=== PATIENT | female | born 1985 | race African-American/Black ===

== ENCOUNTER 2017-02-20 06:05 | Observation (INO) | payer SELFPAY ==
--- NOTE | 2017-02-19 14:57 | MH ---
cc: ASHLEY REYES DATE OF ADMISSION: [facility] Visit Search.Admit Date DATE OF : 1985 ADMITTING DIAGNOSIS Retained placenta four weeks after vaginal delivery. The scheduled procedure will be D&C to remove retained placenta. HISTORY OF PRESENT CONDITION The patient is a very pleasant 31-year-old [place] female, 1, para 0-1-0-1, 4 weeks post unexpected vaginal delivery at [facility] by Dr. Kiser. [place] when the [place] occurred. She went home and returned to the emergency room at [facility] on February 13 for persistent and increasing vaginal bleeding with clots and cramps. She had lab work done but does not have the results. She was told at that time that her ultrasound suggested she would need a D&C and that she needed to follow-up with her delivering [employer]. She was told she could not be seen by the delivering OB-PRODUCE WRAPPER until she obtained Medicaid. She has been working toward that but continuing to bleed. She was therefore sent to the [facility] clinic today which is actually a place for women with opioid dependence, but was seen regardless. At this time she is afebrile, normotensive, not orthostatic, but still bleeding with a partially opened os. She was sent from the clinic to my office for repeat ultrasound which confirmed the presence of two large foci of what was believed to be placental tissue, one at the lower uterine segment and one at the fundus. PHYSICAL EXAMINATION VITAL SIGNS: Her blood pressure is stable at 110/70. Her weight is 174. LUNGS: Clear to auscultation. HEART: Rate and rhythm are regular. ABDOMEN: Benign. IMPRESSION Impression at this time is retained placental fragments. PLAN The plan is for D&C. Because Elizabeth had eaten within the last 30 minutes, actually between the health department and my office, and because she is clinically stable, the decision was made to perform the D&C Wednesday morning. She is on hold for any time in the morning when she can be fit in. She will need to sign consents and have both a CBC and an Rh titer done if we cannot obtain the Rh status from [facility]. She can be reached at [phone]. She was counseled extensively on returning to the emergency room at [facility] between now and tomorrow should the bleeding become even heavier, should she develop fever, should she become weak, tachycardic or feel like she was going to faint. She voiced understanding and will not eat or drink after midnight tonight. Will be expecting a phone call from the [facility] OR to determine the time tomorrow morning that she will be fit in. Ashley Reyes MD PPC/BT /2:13 PM /2:19 PM Visit #: [facility] Visit Search.Visit Number
[~2017-02-20] VITALS: Ht 177.8 cm; Wt 79.0 kg
[2017-02-20] MEDS ORDERED: SODIUM CHLORID 0.9% 500 ML IV PRN (06:30)
[2017-02-20] MEDS ORDERED: METOPROLOL TARTRATE 25 MG TAB PO PRN (06:30)
[2017-02-20] MEDS ORDERED: LACTATED RINGER'S 1000 ML IV PRN (06:30)
[2017-02-20] MEDS ORDERED: POVIDONE IODINE 5% (ANTISEPSIS KIT) 4 APPLICATIONS EACH NARE PRN (06:30)
[2017-02-20] MEDS ORDERED: INSULIN HUMAN REGULAR 1,000 UNITS/10 ML VIAL SQ PRN (06:30)
[2017-02-20] MEDS ORDERED: CHLORHEXIDINE GLUCONATE 2 % 1 PACK (2 CLOTHS) TOPICAL PRN (06:30)
[2017-02-20] MEDS ORDERED: [UNRECOGNIZED DRUG - CODE] PO (07:10)
[2017-02-20] MEDS ORDERED: FAMOTIDINE 20 MG/2 ML VIAL ONE (07:34)
[2017-02-20] MEDS ORDERED: ceFAZolin 2 GM PREMIX 50 ML ONE (07:40)
[2017-02-20] MEDS ORDERED: ceFAZolin 2 GM PREMIX 50 ML IV ONE (07:45)
[2017-02-20] MEDS ORDERED: LACTATED RINGER'S 1000 ML INJ 1,000 ML IV SCH (08:00)
[2017-02-20 08:02] LABS: BASOPHIL % 0.5 % (0.0-2.0); EOSINOPHIL # 0.3 TH/MM3 (0-0.4); EOSINOPHIL % 3.6 % (0.0-4.0); HEMATOCRIT 31.1 % (35.0-46.0); HEMO FLAGS DIFF FINAL; LYMPH % 39.3 % (9.0-44.0); LYMPHOCYTE # 3.4 TH/MM3 (1.0-4.8); MEAN CELL VOLUME 88.3 FL (80.0-100.0); MEAN CORPUSCULAR HEMOGLOBIN 29.2 PG (27.0-34.0); MEAN CORPUSCULAR HGB CONC 33.1 % (32.0-36.0); MONO % 9.9 % (0.0-8.0); NEUT % 46.7 % (16.0-70.0); PLATELET COUNT 425 TH/MM3 (150-450); RED BLOOD COUNT 3.52 MIL/MM3 (4.00-5.30); RED CELL DISTRIBUTION WIDTH 13.6 % (11.6-17.2); WHITE BLOOD COUNT 8.6 TH/MM3 (4.0-11.0)
[2017-02-20] MEDS ORDERED: METHYLERGONOVINE MALEATE 0.2 MG/ML VIAL ONE (08:49)
[2017-02-20] MEDS ORDERED: ACETAMINOPHEN/HYDROcodone 325 MG/5 MG TAB PO PRN (09:00)
[2017-02-20] MEDS ORDERED: ONDANSETRON ODT 4 MG TAB PO PRN (09:00)
[2017-02-20] MEDS ORDERED: DO NOT ADM ANY ANTICOAGULANT DRUGS PRN (09:06)
--- NOTE | 2017-02-20 09:06 | PD.OP ---
Operative Report Date of Surgery: Feb 20, 2017 Preoperative Diagnosis: infected retained placental fragments four weeks post Postoperative Diagnosis: same, subinvoluted uterus Procedure: curretage and manual exploration Anesthesia: GET Surgeon: Ashley Ware [employer] Professor(s): Ric ARZOLA Resident Surgeon: Ashley Peñaloza MD Feb 20, 2017 09:06
[2017-02-20] MEDS ORDERED: *morphine SULFATE 8 MG/ML PERIprocedure ONLY ONE ×2 (09:12→09:31)
[2017-02-20] MEDS ORDERED: *HYDROmorphone PF 1 MG VIAL PERIprocedural Use ONLY ONE (09:37)
[2017-02-20] MEDS ORDERED: *MEPERIDINE 25 MG INJ VIAL PERIprocedural Use ONLY ONE (09:39)
[2017-02-20 10:30] VITALS: BP 112/69; PULSE 80; RESP 18; TEMP 97.7; O2SAT 99
[2017-02-20] MEDS: METHYLERGONOVINE MALEATE 0.2 MG TAB PO SCH ×2 (12:30→17:59)
[2017-02-20] MEDS: ACETAMINOPHEN/HYDROcodone 325 MG/5 MG TAB PO PRN ×3 (12:36→19:58)
[2017-02-20 14:35] VITALS: BP 97/62; PULSE 84; RESP 18; TEMP 98.1; O2SAT 100
--- NOTE | 2017-02-20 15:49 | MP ---
cc: ASHLEY REYES DATE OF SURGERY: 02/20/2017. PREOPERATIVE DIAGNOSIS: Infected retained placental fragments four weeks post delivery at another facility. POSTOPERATIVE DIAGNOSIS: Infected retained placental fragments four weeks post delivery at another facility, markedly sub-involuted uterus. OPERATION: Curettage and manual exploration. SURGEON: Ashley Reyes MD. SUPER[employer]OR [employer]: DARIUSZ Hutchinson. ANESTHESIA: General. FINDINGS: Moderate amount of placental fragments in a 12 to 14 week sized boggy infected uterus with only minimal bleeding but significant infection by both the smell and appearance of the tissue. The uterus seemed to palpate small but very careful exploration revealed it to be 14-16 weeks. A wide banjo curette was used to remove the products and the cervix was open enough that manual exploration was possible to determine that the fundus was intact. The os was too wide for us to be able to do any type of hysteroscopy. The uterus was very soft, boggy and not retracting no bleeding was minimal to moderate. DESCRIPTION OF THE PROCEDURE IN DETAIL: The patient was taken to the operating room after being identified as Elizabeth Lujan and her permit was reviewed in holding. She was placed under general endotracheal anesthesia in the dorsal lithotomy position. She was given 2 grams Ancef prior to induction. After being prepped and draped, a red rubber catheter was used to drain the bladder. Examination under anesthesia revealed a cervix that was dilated 2-3 cm. A wide banjo curette was carefully placed into the uterus with care to not push into the fundus. This extended almost to the handle of the banjo curette which was of concern. A gentle curettage was performed throughout the fundus to remove a moderate amount of tissue that was obviously infected. Manual evaluation of the intrauterine cavity was reassuring in that no obvious perforation was identified. While bleeding was not significant, the uterus was not involuting even after the removal of products. The decision was made to keep her overnight with Methergine IV antibiotics and a repeat CBC in the morning. Estimated blood loss during the procedure was 100 mL. There does not appear to be any iatrogenic injury. Sponge, instrument, needle counts were correct. She was taken to the recovery room in stable condition. MD HARMONY Daniels/JCC /9:07 AM /3:33 PM
[2017-02-20 16:10] VITALS: BP 107/64; PULSE 79; RESP 18; TEMP 98.2; O2SAT 100
[2017-02-20 18:10] VITALS: BP 107/64; PULSE 79; RESP 18; TEMP 98.2; O2SAT 100
[2017-02-20 20:00] VITALS: BP 109/74; PULSE 88; RESP 18; TEMP 98.1
[2017-02-21] VITALS: BP 108/66; PULSE 83; RESP 18; TEMP 98.1
[2017-02-21] MEDS: METHYLERGONOVINE MALEATE 0.2 MG TAB PO SCH ×2 (00:03→06:05)
[2017-02-21] MEDS: ACETAMINOPHEN/HYDROcodone 325 MG/5 MG TAB PO PRN ×4 (00:04→14:07)
[2017-02-21 04:26] VITALS: BP 101/58; PULSE 76; RESP 20; TEMP 98.6
[2017-02-21 05:55] LABS: AUTOMATED NEUTROPHIL # 13.7 TH/MM3 (1.8-7.7); BASOPHIL # 0.1 TH/MM3 (0-0.2); BASOPHIL % 0.7 % (0.0-2.0); EOSINOPHIL % 0.2 % (0.0-4.0); HEMATOCRIT 30.1 % (35.0-46.0); LYMPHOCYTE # 3.4 TH/MM3 (1.0-4.8); MEAN CELL VOLUME 88.3 FL (80.0-100.0); MEAN CORPUSCULAR HEMOGLOBIN 28.7 PG (27.0-34.0); MEAN CORPUSCULAR HGB CONC 32.5 % (32.0-36.0); MONO % 8.7 % (0.0-8.0); NEUT % 72.4 % (16.0-70.0); PLATELET COUNT 457 TH/MM3 (150-450); RED BLOOD COUNT 3.41 MIL/MM3 (4.00-5.30); RED CELL DISTRIBUTION WIDTH 13.7 % (11.6-17.2); WHITE BLOOD COUNT 18.9 TH/MM3 (4.0-11.0)
[2017-02-21 05:57] LABS: HEMO FLAGS AUTO DIFF
[2017-02-21 07:40] VITALS: BP 114/74; PULSE 78; RESP 18; TEMP 98.1; O2SAT 100
--- NOTE | 2017-02-21 11:46 | HHI.PR ---
Subjective Remarks Doing well quite painful after difficult D & C minimal bleeding Objective Vital Signs Vital Signs Date Time Temp Pulse Resp B/P (MAP) Pulse Ox O2 Delivery O2 Flow Rate FiO2 02/21/17 07:40 98.1 78 18 114/74 (87) 100 02/21/17 04:26 98.6 76 20 101/58 (72) 02/21/17 00:00 98.1 83 18 108/66 (80) 02/20/17 20:00 98.1 88 18 109/74 (86) 02/20/17 18:10 98.2 79 18 107/64 (78) 100 02/20/17 14:35 98.1 84 18 97/62 (74) 100 I/O 02/20/17 02/20/17 02/20/17 02/21/17 02/21/17 02/21/17 07:00 15:00 23:00 07:00 15:00 23:00 Intake Total 900 ml 400 ml 200 ml 200 ml Output Total 100 ml 650 ml Balance 800 ml -250 ml 200 ml 200 ml Intake Oral 300 ml 400 ml 200 ml 200 ml IV Total 600 ml Output Urine Total 650 ml Estimated Blood Loss 100 ml Result Diagram: 02/21/17 0540 Objective Remarks Chest is clear, regular rate and rhythm. Abdomen is soft and non-distended. Ext no CCE. A/P Assessment and Plan Post Op Day 1 Doing well except some cramping and nausea needs to get back to baby will need sono of uterus before returning to [facility] today and return to office this week Ashley Ware MD Feb 21, 2017 11:46
[2017-02-21] MEDS ORDERED: TRAM50TA PO (11:48)
[2017-02-21] MEDS ORDERED: ZOFR8TAB4 SL (11:48)
[2017-02-21] MEDS ORDERED: IBUP-232 PO (11:49)
--- NOTE | 2017-02-21 11:49 | HHI.DCPOC ---
Discharge Care Plan Report Symptoms to Your Doctor -Temperature above 100.5 degrees -Redness, of incision or excessive or foul smelling drainage -Unusual pain or calf pain -Increased vaginal bleeding -Painful or difficulty urinating -Feelings of extreme sadness or anxiety after 2 weeks Goals to Promote Your Health * To prevent worsening of your condition and complications * To maintain your health at the optimal level Directions to Meet Your Goals Take your medications as prescribed Follow your dietary instruction Follow activity as directed Ensure plenty of rest for recovery Drink fluids for hydration Keep your appointments as scheduled Take your immunizations and boosters as scheduled If your symptoms worsen call your PCP, if no PCP go to Urgent Care Center or Emergency Room Smoking is Dangerous to Your Health. Avoid second hand smoke Call the 24-hour crisis hotline for domestic abuse at Ashley Ware MD Feb 21, 2017 11:49
== END 2017-02-21 14:35 | disposition home or self-care (01) ==
LOC: HSDC 06:05 → HSDI 08:59 → H1EA 10:15
PROVIDERS: ADMIT Obstetrics & Gynecology; ATTEND Obstetrics & Gynecology
DX: O73.1 Retained portions of placenta and membranes, without hemorrhage (principal)
CPT/HCPCS: 00940; 59160; 85025; 86850; 86900; 86901; 88305; 96365; 96376; G0378; J0690; J1170; J2175; J2210; J2270; J7120